=== PATIENT | female | born 1950 | race Caucasian/White ===

== ENCOUNTER → 2022-12-17 | Outpatient (CLI) | payer MEDICARE, OTHER ==
--- NOTE | 2022-12-17 17:00 | Diagnostic Imaging Report ---
INDICATION: Right lung cancer of unspecified part. COMPARISON: No priors for comparison. TECHNIQUE: Patient received 23.7 mCi technetium-99 MDP, and after 3 hours, whole-body planar imaging performed. FINDINGS: There is arthritic pattern of uptake involving the right greater than left ankles, the bilateral knees, and the bilateral shoulders. There is focal elevated uptake in T7 or T6 vertebral body, which could be fracture or degenerative. In isolation, neoplasm would be doubtful; however, radiographic correlation to confirm a benign explanation for focal uptake at that site recommended. Otherwise, there is a physiologic distribution of the radiopharmacy with soft tissue uptake and excretion by urinary tracts. IMPRESSION: Mid thoracic vertebral uptake, indeterminate, warrants plain film correlation. Remaining sites are arthritic; otherwise, negative. Dictated by: Dictated on workstation # [id number]
== END ==
LOC: CARD 09:45
PROVIDERS: ATTEND Internal Medicine Hematology & Oncology
DX: C34.91 Malignant neoplasm of unspecified part of right bronchus or lung (principal)
CPT/HCPCS: 78306; A9503